=== PATIENT | male | born 1990 | race African-American/Black ===

== ENCOUNTER 2023-03-27 20:09 | Emergency (ER) | payer MEDICAID ==
[2023-03-27 20:39] VITALS: PULSE 100
== END 2023-03-27 20:45 | disposition left against medical advice (07) ==
LOC: ER 20:09
DX: M79.644 Pain in right finger(s) (principal); Z53.21 Procedure and treatment not carried out due to patient leaving prior to being seen by health care provider
CPT/HCPCS: 99281